=== PATIENT | male | born 1975 | race Caucasian/White ===

== ENCOUNTER 2021-12-07 11:48 | Emergency (ER) | payer MEDICARE, MEDICAID, SELFPAY ==
--- NOTE | 2021-12-07 11:53 | W.ED.SEIZURE ---
HPI - Seizure General: Chief Complaint: Seizure Stated Complaint: possible seizure Time Seen by Provider: 12/07/21 11:53 Limitations: altered mental status History of Present Illness: HPI Narrative: Mr. Jefferson is a 46-year-old gentleman with apparent history of flashbacks and seizures presenting to the emergency department due to seizure. Per EMS report seizure was unwitnessed at [facility]. Patient is mildly postictal on assessment which limits history. He reports that he is on antiseizure medications and does have a history of seizures however has not been seen here previously and does not recall what seizure medications that he is on. He typically has seizures every 2 to 3 days typically precipitated by stress. Per EMS report he has been off methamphetamine for approximately 1 week. Denies other known specific changes in health or provoking factors. Does have a history of migraines and currently has a headache. No other specific changes in health, exacerbating, or alleviating factors identified. History limited by postictal period. Onset (ago): minute(s) Description of Episode: post-event confusion Witnessed: No Seizure History: Yes Place: [facility] Possible Precipitating Event: other (PTSD flashbacks) Associated symptoms: Reports no associated symptoms Review of Systems General: Reports: 10 or more systems reviewed and unremarkable except in HPI and below PFSH ED PFSH: Medical History Seizures Surgical History Surgical history unknown Social History Substance/Drug Use: former Physical Exam Const: COMMON NORMALS: alert GENERAL APPEARANCE: cooperative and well developed HENMT: COMMON NORMALS: normocephalic and atraumatic HEAD & SCALP: normocephalic and atraumatic Eye: COMMON NORMALS: conjunctivae normal CONJUNCTIVA: Yes conjunctivae normal SCLERA: sclerae normal Neck/C-Spine: COMMON NORMALS: supple GENERAL: Yes trachea midline Resp: COMMON NORMALS: normal respiratory effort and clear to auscultation bilaterally EFFORT & INSPECTION: Yes able to speak in complete sentences AUSCULTATION: clear to auscultation bilaterally Cardio: COMMON NORMALS: regular rate and regular rhythm RATE: regular rate RHYTHM: regular rhythm GI: COMMON NORMALS: Soft to palpation PALPATION: Yes Soft to palpation and No Tenderness to palpation present (GI) PERCUSSION: normal to percussion Extremity: GENERAL: Yes normal exam except as noted and No edema Neuro: COMMON NORMALS: moves all extremities SENSORIUM/ORIENTATION: Yes alert and No Orientation impaired Psych: COMMON NORMALS: mental status grossly normal and Normal thought process present THOUGHT PROCESS: Normal thought process present OTHER: Mildly slowed responses consistent with postictal Course ED course: - Patient was seen and evaluated by me at bedside - Patient placed on cardiac monitors, IV access obtained - Initial evaluation notable for exam as above - Labs personally interpreted by me - Labs notable for hemoconcentration, no significant electrolyte derangement, toxic ingestions negative -IV fluids given - Imaging notable for negative head CT - Upon serial reexamination after treatment the patient was improved - Based on patient history, evaluation, and testing as interpreted the most likely cause of the patient's condition is seizure - The results of ED evaluation were discussed with the patient including prescriptions and/or symptomatic cares (if applicable) including appropriate and responsible use, followup plan, and return precautions. The patient verbalized understanding and felt safe for discharge. - Patient discharged in satisfactory condition. Note: Click bubbles or prepopulated navarro in note writing are used for assistance with data collection and billing and are inherently more limited than narrative and other text portions of this note. Please use narrative for additional clinical history and defer to narrative/free test for any case of contradictory information. If information appears in only free text or click bubble it should be considered present or absent as reported. Please contact note data analyst report writer for clarifications of clinical information or contradictory information. MDM is a brief summary, contradictory or erroneous seeming information should be clarified and full note should be reviewed. Vital Signs: Vital signs: Vital Signs Pulse Rate 80 12/07/21 14:06 Respiratory Rate 16 12/07/21 14:06 Blood Pressure 150/110 12/07/21 14:06 Pulse Oximetry 96 12/07/21 14:06 Oxygen Delivery Me thod 12/07/21 12:05 MDM - Seizure MDM Narrative Medical decision making narrative: 46-year-old gentleman with history of seizures presenting with seizure, apparently has been out of medication or there is some confusion regarding appropriate dose and dose history. Patient improved with IV fluids and back to baseline neurologically without focal neurologic deficits. Satisfactory for outpatient management with a prescription for Lamictal ramp-up ordered. Medical Records Attestation: I reviewed the patient's medical records. Lab Data Attestation: I reviewed the patient's lab results. Result diagrams: 12/07/21 11:30 12/07/21 11:30 Labs: Radiology Impressions Head CT 12/07/21 12:05 IMPRESSION: No acute intracranial abnormality. Laboratory Results WBC 15.7 10^3/uL (4.0-10.0) H 12/07/21 11:30 RBC 5.85 10^6/uL (4.1-5.3) H 12/07/21 11:30 Hgb 17.7 g/dL (11.7-16.6) H 12/07/21 11:30 Hct 51.0 % (42.0-52.0) 12/07/21 11:30 MCV 87.2 fl (80-94) 12/07/21 11:30 MCH 30.3 pg (28.0-34.0) 12/07/21 11:30 MCHC 34.7 g/dL (30.0-36.0) 12/07/21 11:30 RDW 12.7 % (12.1-15.1) 12/07/21 11:30 Plt Count 341 10^3/cmm (130-400) 12/07/21 11:30 MPV 9.5 fL (7.4-10.4) 12/07/21 11:30 Neut % (Auto) 70.2 % 12/07/21 11:30 Lymph % (Auto) 21.3 % 12/07/21 11:30 Kerr % (Auto) 5.0 % 12/07/21 11:30 Eos % (Auto) 1.8 % 12/07/21 11:30 Baso % (Auto) 1.0 % 12/07/21 11:30 Neut # (Auto) 11.02 10^3/uL (1.8-7.7) H 12/07/21 11:30 Lymph # (Auto) 3.3 10^3/uL (0.8-4.8) 12/07/21 11:30 Kerr # (Auto) 0.8 10^3/uL (0.2-0.9) 12/07/21 11:30 Eos # (Auto) 0.3 10^3/uL (0.0-0.8) 12/07/21 11:30 Baso # (Auto) 0.2 10^3/uL (0.0-0.1) H 12/07/21 11:30 Nucleated RBC % (auto) 0 % 12/07/21 11:30 Nucleated RBCs # 0.0 /100WBC 12/07/21 11:30 Sodium 137 mmol/L (136-145) 12/07/21 11:30 Potassium 4.1 mmol/L (3.5-5.1) 12/07/21 11:30 Chloride 101 mmol/L (98-107) 12/07/21 11:30 Carbon Dioxide 24 mmol/L (22-29) 12/07/21 11:30 Anion Gap 16.1 (5-19) 12/07/21 11:30 BUN 8 mg/dL (6-20) 12/07/21 11:30 Creatinine 0.9 mg/dL (0.7-1.2) 12/07/21 11:30 GFR Calculation 90.1 mL/min (90-130) 12/07/21 11:30 Glucose 111 mg/dL (65-115) 12/07/21 11:30 POC Glucose 95 mg/dL (70-110) 12/07/21 13:17 Calculated Osmolality 283 mOsm/kg (285-295) L 12/07/21 11:30 Calcium 9.0 mg/dL (8.5-10.5) 12/07/21 11:30 Prolactin 5.55 ng/mL (4.0-15.2) 12/07/21 11:30 Salicylates < 0.3 mg/dL (3-10) L 12/07/21 11:30 Acetaminophen < 5.0 ug/mL (10-30) L 12/07/21 11:30 Ethyl Alcohol < 10 mg/dL (0-10) 12/07/21 11:30 Discharge Plan Discharge Patient Disposition: Home Clinical Impression: Seizures, Dehydration Condition: Stable Prescriptions: New Lamictal XR 50 mg tablet extended release 24hr 50 mg PO DAILY Qty: 60 0RF Rx Instructions: Week 1-2, 25mg qday, week 3-4, 50mg qday, week 5 100mg qday, week 6 150mg qday, week 7 200mg qday No Action pravastatin 40 mg Tablet 40 mg PO BEDTIME Lamictal 25 mg Tablet 50 mg PO BEDTIME nicotine (polacrilex) 4 mg Gum 12 mg BUCCAL DAILY PRN (Reason: Nicotine Cravings) nicotine 21 mg/24 hr Patch 24 Hour 1 patch TRANSDERMAL DAILY propranolol 20 mg Tablet 20 mg PO TID PRN (Reason: Blood Pressure) Discharge Orders: Discharge ED (Routine); Ordered 12/07/21 Ordered By: Fletcher De La Cruz Discharge Diet: Usual diet Discharge Activity: Limit activity as instructed Patient Instructions: Dehydration (ED), Recurrent Seizures in Adults (ED) Activity Restrictions/Additional Instructions: Thank you for visiting the emergency department. You were seen and evaluated for seizure. The exact cause of your underlying seizure disorder is unclear. You should follow-up with your neurologist and your primary care provider. Please follow all seizure precautions that we discussed. You were also mildly dehydrated. Please ensure that you are staying hydrated. Return to the emergency department for anything that you are concerned about and feel needs emergency department evaluation. Given that you have not had your Lamictal and your previous dose was 200 mg you do require a increasing taper. Please follow the taper as below Increasing dose schedule Week 1-2: 25mg daily week 3-4: 50mg daily week 5: 100mg daily week 6: 150mg daily week 7: 200mg daily Coding Level of Care Code ED Financial Compliance Examiner for Saurabh Fwagustín Exam Comprehensive
[2021-12-07 11:59] VITALS: BP 135/105; PULSE 71; RESP 15; O2SAT 97
[2021-12-07 12:05] VITALS: PULSE 71; RESP 15; O2SAT 97
--- NOTE | 2021-12-07 12:05 | CTR_ITS ---
PROCEDURE INFORMATION: Exam: CT Head Without Contrast Exam date and time: 12/07/2021 12:31 PM Age: 46 years old Clinical indication: Altered mental status/memory loss and other: Seizure; Additional info: Seizure, AMS TECHNIQUE: Imaging protocol: Computed tomography of the head without contrast. Radiation optimization: All CT scans at this facility use at least one of these dose optimization techniques: automated exposure control; mA and/or kV adjustment per patient size (includes targeted exams where dose is matched to clinical indication); or iterative reconstruction. COMPARISON: No relevant prior studies available. RADIATION DOSE METRICS: Total DLP (mGy-cm): 1083.68 FINDINGS: Brain: Normal. No hemorrhage. Unremarkable white matter. No mass effect. Cerebral ventricles: No ventriculomegaly. Paranasal sinuses: Visualized sinuses are unremarkable. No fluid levels. Mastoid air cells: Visualized mastoid air cells are well aerated. Bones/joints: Unremarkable. No acute fracture. Soft tissues: Unremarkable. CT/CT head wo con* [id number] IMPRESSION: No acute intracranial abnormality.
[2021-12-07 12:14] LABS: Basophils # 0.2 10^3/uL (0.0-0.1); Eosinophils # 0.3 10^3/uL (0.0-0.8); Eosinophils % 1.8 %; Hemoglobin 17.7 g/dL (11.7-16.6); Lymphocytes # 3.3 10^3/uL (0.8-4.8); Lymphocytes % 21.3 %; Mean Corpuscular HGB Conc 34.7 g/dL (30.0-36.0); Mean Corpuscular Hemoglobin 30.3 pg (28.0-34.0); Mean Corpuscular Volume 87.2 fl (80-94); Mean Platelet Volume 9.5 fL (7.4-10.4); Monocytes # 0.8 10^3/uL (0.2-0.9); Neutrophils # 11.02 10^3/uL (1.8-7.7); Neutrophils % 70.2 %; Nucleated Red Blood Cells % 0 %; Platelet Count 341 10^3/cmm (130-400); Red Blood Count 5.85 10^6/uL (4.1-5.3); Red Cell Distribution Width 12.7 % (12.1-15.1); White Blood Count 15.7 10^3/uL (4.0-10.0)
[2021-12-07 12:38] LABS: Anion Gap 16.1 (5-19); Blood Urea Nitrogen 8 mg/dL (6-20); Carbon Dioxide 24 mmol/L (22-29); Chloride 101 mmol/L (98-107); Glomerular Filtration Rate 90.1 mL/min (90-130); Glucose 111 mg/dL (65-115); Osmolality Calculated 283 mOsm/kg (285-295); Potassium 4.1 mmol/L (3.5-5.1); Sodium 137 mmol/L (136-145)
[2021-12-07 12:40] LABS: Acetaminophen < 5.0 ug/mL (10-30); Alcohol Level < 10 mg/dL (0-10); Salicylate < 0.3 mg/dL (3-10)
[2021-12-07 13:03] LABS: Prolactin 5.55 ng/mL (4.0-15.2)
[2021-12-07 13:05] VITALS: BP 145/116; PULSE 75
[2021-12-07 13:22] LABS: Glucose Point of Care 95 mg/dL (70-110)
--- NOTE | 2021-12-07 13:50 | PC.NURSE ---
pt verbalizes he wants to go home he stated he wants to talk to the doctor because he does not like hospital.
--- NOTE | 2021-12-07 13:55 | PC.NURSE ---
Talked to Neville Espinosa of [facility] were pt was residing. Updated him. Trevon provided phone # to call for his transportation once discharge.
[2021-12-07 14:06] VITALS: BP 150/110; PULSE 80; RESP 16; O2SAT 96
--- NOTE | 2021-12-07 14:27 | PC.NURSE ---
Transportation called Pt is being discharge by . Paper works provided. Transport called as provided by alethea miller. Phone # is [phone].
== END 2021-12-07 14:08 | disposition home or self-care (01) ==
PROVIDERS: Emergency Provider Emergency Medicine
DX: R56.9 Unspecified convulsions (principal); E86.0 Dehydration
CPT/HCPCS: 36416; 70450; 80048; 80307; 82962; 84146; 85025; 99284